=== PATIENT | male | born 1965 | race Hispanic/Latino ===

== ENCOUNTER 2018-01-17 16:47 | Emergency (ER) | payer MEDICAID, OTHER ==
[2018-01-17 17:22] VITALS: BMI 38.7
[2018-01-17 17:31] VITALS: TEMP 98.9
[2018-01-17] MEDS ORDERED: Albuterol 0.083% Inhal Sol (2.5 mg/3 mL) UD INH STA (17:39)
[2018-01-17] MEDS ORDERED: Promethazine 6.25 MG/5 ML CUP PO STA (17:40)
--- NOTE | 2018-01-17 18:57 | RAD ---
HISTORY: Cough COMPARISON: No prior. TECHNIQUE: Chest PA and lateral FINDINGS: LUNGS: No active pulmonary disease. PLEURA: No significant pleural effusion identified. No pneumothorax apparent. CARDIOVASCULAR: Normal. OSSEOUS STRUCTURES: No significant abnormalities. VISUALIZED UPPER ABDOMEN: Normal. OTHER FINDINGS: None. IMPRESSION: No active disease.
--- NOTE | 2018-01-17 18:58 | RAD ---
HISTORY: Back Pain. No history of recent/ related trauma provided COMPARISON: No prior. FINDINGS: BONES: Alignment maintained. No fracture. DISC SPACES: Normal. SOFT TISSUES: Normal. OTHER FINDINGS: None. IMPRESSION: No acute findings related to/accounting for the clinical presentation.
--- NOTE | 2018-01-17 19:07 | ED PDOC ---
Arrival/HPI - General Chief Complaint: Cough, Cold, Congestion Time Seen by Provider: 01/17/18 17:27 Historian: Patient - History of Present Illness Narrative History of Present Illness (Text): 01/17/18 19:04 52yo male with PMhx of hypertension, HLD present with complaint of productive cough x 3days. States currently having left sided chest and mid back pain with cough. States he took Nyquil yesterday. He notes that the people at [facility] where he stays have similar symptoms. Denies fever, chills, SOB, diaphoresis, travel history. Past Medical History - Provider Review Nursing Documentation Reviewed: Yes - Infectious Disease Hx of Infectious Diseases: None - Cardiac Hx Hypertension: Yes - Gastrointestinal Hx Gastroesophageal Reflux: Yes - Psychiatric Hx Substance Use: Yes - Anesthesia Hx Anesthesia: No Family/Social History - Physician Review Nursing Documentation Reviewed: Yes Family/Social History: Unknown Family HX Smoking Status: Current Some Days Smoker Hx Alcohol Use: Yes Frequency of alcohol use: Socially Hx Substance Use: Yes Substance used: marijuana Allergies/Home Meds Allergies/Adverse Reactions: Allergies No Known Allergies Allergy (Verified 01/17/18 17:21) Home Medications: Home Meds Medication Instructions Recorded Confirmed Lisinopril/Hydrochlorothiazide 1 tab PO DAILY 01/17/18 01/17/18 [Lisinopril-Hctz 20-25 mg Tab] Omeprazole [Omeprazole] 1 cap PO DAILY 01/17/18 01/17/18 Simvastatin [Zocor] 1 tab PO HS 01/17/18 01/17/18 Review of Systems - Physician Review All systems were reviewed & negative as marked: Yes - Review of Systems Constitutional: Normal Eyes: Normal ENT: Normal Respiratory: Cough. absent: SOB, Sputum, Wheezing Cardiovascular: Normal Gastrointestinal: Normal Genitourinary Male: Normal Musculoskeletal: Normal Skin: Normal Neurological: Normal Endocrine: Normal Hemo/Lymphatic: Normal Psychiatric: Normal Physical Exam Vital Signs Reviewed: Yes Vital Signs Temp Pulse Resp BP Pulse Ox 01/17/18 19:20 80 18 110/74 96 01/17/18 17:30 98.9 F 88 18 116/78 94 L Temperature: Afebrile Blood Pressure: Normal Pulse: Regular Respiratory Rate: Normal Appearance: Positive for: Well-Appearing, Non-Toxic, Comfortable Pain Distress: None Mental Status: Positive for: Alert and Oriented X 3 - Systems Exam Head: Present: Atraumatic, Normocephalic Pupils: Present: PERRL Extroacular Muscles: Present: EOMI Conjunctiva: Present: Normal Mouth: Present: Moist Mucous Membranes Neck: Present: Normal Range of Motion Respiratory/Chest: Present: Clear to Auscultation, Good Air Exchange. No: Respiratory Distress, Accessory Muscle Use, Wheezes, Decreased Breath Sounds, Rales, Retracting, Rhonchi, Tachypneic Cardiovascular: Present: Regular Rate and Rhythm, Normal S1, S2. No: Murmurs Abdomen: Present: Normal Bowel Sounds. No: Tenderness, Distention, Peritoneal Signs Back: Present: Normal Inspection Upper Extremity: Present: Normal Inspection. No: Cyanosis, Edema Lower Extremity: Present: Normal Inspection. No: Edema Neurological: Present: GCS=15, CN II-XII Intact, Speech Normal Skin: Present: Warm, Dry, Normal Color. No: Rashes Psychiatric: Present: Alert, Oriented x 3, Normal Insight, Normal Concentration Medical Decision Making ED Course and Treatment: 01/17/18 20:13 Chest xray NAD Result was DW the pt. He was treated and DC home with Zpack, albuterol and promethazine. Counselled on smoking cessation. Referred to the clinic/PMD. TRT ED for any new or worsening symptoms. - RAD Interpretation Radiology Orders: 01/17/18 17:39 CHEST TWO VIEWS (PA/LAT) [RAD] Stat DORSAL (THORACIC) SPINE [RAD] Stat - Medication Orders Current Medication Orders: Discontinued Medications Albuterol Sulfate (Albuterol 0.083% Inhal Niecy (2.5 Mg/3 Ml) Ud) 2.5 mg INH STAT STA Stop: 01/17/18 17:40 Last Admin: 01/17/18 18:15 Dose: 2.5 mg Azithromycin (Zithromax) 500 mg PO STAT STA PRN Reason: Protocol Stop: 01/17/18 19:04 Last Admin: 01/17/18 19:22 Dose: 500 mg Ibuprofen (Motrin Tab) 600 mg PO STAT STA Stop: 01/17/18 17:41 Last Admin: 01/17/18 18:19 Dose: Not Given Non-Admin Reason: Patient Refused Promethazine HCl (Phenergan Syrup) 6.25 mg PO ONCE STA Stop: 01/17/18 17:41 Last Admin: 01/17/18 18:17 Dose: 6.25 mg Disposition/Present on Arrival - Present on Arrival Any Indicators Present on Arrival: No History of DVT/PE: No History of Uncontrolled Diabetes: No Urinary Catheter: No History of Decub. Ulcer: No History Surgical Site Infection Following: None - Disposition Have Diagnosis and Disposition been Completed?: Yes Diagnosis: Cough Disposition: HOME/ ROUTINE Disposition Time: 19:15 Patient Plan: Discharge Patient Problems: Current Active Problems Problem Status Onset Cough Acute Condition: STABLE Discharge Instructions (ExitCare): Cough in Adults Additional Instructions: Follow up with the clinic/PMD Return to ED for any new or worsening symptoms Prescriptions: Albuterol HFA [Ventolin HFA 90 mcg/actuation (8 g)] 2 puff IH O1HCMGR #1 puff Azithromycin [Zithromax] 250 mg PO DAILY #4 tab Promethazine [Phenergan Syrup] 6.25 mg PO Q6 #100 ml Referrals: [facility] [place] - Follow up with primary Forms: UserEvents (Czech)
[2018-01-18 01:35] VITALS: BP 112/80; PULSE 77; RESP 17; O2SAT 99
== END 2018-01-17 19:25 | disposition home or self-care (01) ==
LOC: ED 16:47
DX: R05 Cough (principal); E78.5 Hyperlipidemia, unspecified; I10 Essential (primary) hypertension; F17.200 Nicotine dependence, unspecified, uncomplicated